=== PATIENT | female | born 1950 | race Caucasian/White ===

== ENCOUNTER 2018-02-12 07:13 | Day surgery (SDC) ==
[2018-02-12] MEDS: BETADINE OPTH PREP OP PRN ×2 (07:31→08:44)
[2018-02-12] MEDS: TETRACAINE 0.5% UNIT-DOSE OP PRN ×2 (07:31→08:52)
[2018-02-12] MEDS: CYCLOGYL 2% OPTH OP PRN ×3 (07:32→07:42)
[2018-02-12] MEDS ORDERED: DEX-MOXI-KETOR OPTH INJ 1/0.5/0.4 MG/ML IO ONE (07:40)
[2018-02-12] MEDS ORDERED: LIDOCAINE 1%/PHENYLEPHRINE 1.5% BSS (SURGERY) INTRAOCULA ONE (07:40)
[2018-02-12] MEDS ORDERED: BSS WITH EPINEPHRINE OP ONE (07:40)
[2018-02-12] MEDS ORDERED: BRIMONIDINE TARTRATE 0.2% OPTH SOL OP PRN (07:40)
[2018-02-12] MEDS ORDERED: ZOFRAN 4 MG/2 ML IVP ONE (07:40)
[2018-02-12] MEDS ORDERED: LIDOCAINE 1% 20 ML MDV ID STA (07:40)
[2018-02-12] MEDS ORDERED: SUBLIMAZE ONE (08:50)
[2018-02-12] MEDS ORDERED: VERSED ONE (08:50)
[2018-02-14 14:07] VITALS: BP 129/67; TEMP 98.6
== END 2018-02-12 09:30 | disposition home or self-care (01) ==
LOC: SURG 07:13
PROVIDERS: ATTEND Ophthalmology
DX: H25.811 Combined forms of age-related cataract, right eye (principal)